=== PATIENT | male | born 1955 | race Caucasian/White ===

== ENCOUNTER 2022-11-14 12:01 | Outpatient (REF) | payer OTHER, SELFPAY ==
--- NOTE | 2022-11-14 09:27 | EMG_ITS ---
Bilateral median and ulnar motor and sensory studies were performed. Bilateral radial sensory studies were performed. Bilateral median and lateral antecubital brachial studies were performed and needle examination was performed on paraspinal muscles. IMPRESSION: 1. Mild bilateral median neuropathy across carpal tunnel. 2. Otherwise, no significant abnormality was noted. Specifically, there was no sign of cervical radiculopathy. MD LAQUITA Alcala/LUCY / [id number]
== END 2022-11-14 12:02 | disposition home or self-care (01) ==
LOC: HO.NEURO 12:01
PROVIDERS: Visit Provider Surgery
DX: R22.1 Localized swelling, mass and lump, neck (principal)
CPT/HCPCS: 95886; 95913

== ENCOUNTER 2023-04-03 08:37 | Outpatient (REF) | payer OTHER, SELFPAY ==
--- NOTE | 2023-04-03 09:01 | EMG_ITS ---
Left spinal accessory nerve was stimulated at multiple points. Right spinal accessory nerve was also stimulated for comparison. Needle examination was performed in left trapezius sternocleidomastoids muscle. IMPRESSION: There is no difference of amplitude on either side with normal looking amplitude suggestive of normal bilateral spinal accessory nerves. Left spinal accessory nerve was stimulated at multiple points in reference to the mass on posterior part of the neck and its path was marked until it reached the tumor where further stimulation could not be done. MD LAQUITA Alcala/LUCY / [id number]
== END 2023-04-03 08:38 | disposition home or self-care (01) ==
LOC: HO.NEURO 08:37
PROVIDERS: PCP Internal Medicine; Visit Provider Surgery
DX: R22.1 Localized swelling, mass and lump, neck (principal); M79.89 Other specified soft tissue disorders; Z01.818 Encounter for other preprocedural examination
CPT/HCPCS: 95886; 95907